=== PATIENT | female | born 1980 | race Caucasian/White ===

== ENCOUNTER 2017-12-21 15:13 | Day surgery (SDC) | payer OTHER ==
[2017-12-21] MEDS ORDERED: CEFAZOLIN 2 GM/50 ML (PMX) 50 ML IVPB (16:30)
[2017-12-21] MEDS ORDERED: LACTATED RINGER'S 1,000 ML IV* (16:30)
[2017-12-21] MEDS ORDERED: FENTAnyl 50 MCG/ML VIAL (18:01)
[2017-12-21] MEDS ORDERED: ONDANSETRON 4 MG INJ (18:01)
[2017-12-21] MEDS ORDERED: METOCLOPRAMIDE 10 MG INJ (18:01)
[2017-12-21] MEDS ORDERED: MIDAZOLAM 1 MG/ML 2 ML INJ (18:01)
[2017-12-21] MEDS ORDERED: PROPOFOL 20 ML (18:01)
[2017-12-21] MEDS ORDERED: CEFAZOLIN 1 GM INJ (18:05)
[2017-12-21] MEDS ORDERED: PROCHLORPERAZINE 10 MG INJ IV (18:30)
[2017-12-21] MEDS ORDERED: METOCLOPRAMIDE 10 MG INJ IV (18:30)
[2017-12-21] MEDS ORDERED: HYDROmorphONE 1 MG/5 ML IV SYRINGE IV ×2 (18:30)
[2017-12-21] MEDS ORDERED: ONDANSETRON 4 MG INJ IV (18:30)
[2017-12-21] MEDS ORDERED: DIPHENHYDRAMINE 50 MG INJ IV (18:30)
[2017-12-21] MEDS ORDERED: TRIMETHOBENZAMIDE 100 MG/ML VIAL IM (18:30)
[2017-12-21] MEDS ORDERED: LABETALOL HCL 20MG INJ IV (18:30)
[2017-12-21] MEDS ORDERED: MEPERIDINE 25 MG INJ IV (18:30)
[2017-12-21] MEDS ORDERED: KETOROLAC 30 MG INJ IV (18:30)
[2017-12-21] MEDS ORDERED: hydrALAzine 20 MG INJ IV (18:30)
[2017-12-21] MEDS ORDERED: FENTAnyl 50 MCG/ML VIAL IV (18:30)
[2017-12-21] MEDS ORDERED: OXYCODONE/ACETAMINOPHEN (5/325) TAB PO ×2 (18:30)
[2017-12-21] MEDS: BUPIVACAINE 0.5% (SDV) 30 ML INJ (18:45)
[2017-12-21] MEDS: LIDOCAINE 1% (MPF) 30 ML INJ (18:45)
== END 2017-12-21 19:35 | disposition home or self-care (01) ==
LOC: SDS 15:13
DX: D48.1 Neoplasm of uncertain behavior of connective and other soft tissue (principal)
CPT/HCPCS: 26116; 88307